=== PATIENT | female | born 2005 | race Caucasian/White ===

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

== ENCOUNTER 2024-02-11 12:48 | Outpatient (CLI) | payer OTHER, SELFPAY ==
--- NOTE | 2024-02-11 13:00 | CRLHL7_ITS ---
For Patients: As a result of the Century Cures Act, medical imaging exams and procedure reports are released immediately into your electronic medical record. You may view this report before your referring provider. If you have questions, please contact your health care provider. INDICATION: Headaches. TECHNIQUE: Multiplanar multisequence noncontrast MR images of the brain. COMPARISON: None. FINDINGS: The ventricles and sulci are within normal limits for patient age. No mass effect or midline shift. No parenchymal signal abnormalities. No intracranial hemorrhage or pathologic extra-axial fluid collection. No diffusion restriction to suggest acute infarction. The major arterial flow voids at the skull base are preserved. The globes are symmetric. The paranasal sinuses are well aerated. The mastoid air cells are clear. IMPRESSION: Unremarkable noncontrast MRI of the brain. Dictated by Umair Graves MD @ 02/11/2024 1:40:21 PM (Electronically Signed)
== END 2024-02-11 12:49 | disposition home or self-care (01) ==
LOC: MRI 12:49
PROVIDERS: PCP Physician Assistant Medical; Visit Provider Physician Assistant Medical
DX: G43.109 Migraine with aura, not intractable, without status migrainosus (principal)
CPT/HCPCS: 70551

== ENCOUNTER 2024-02-22 09:02 | Outpatient (CLI) | payer OTHER, SELFPAY | END 2024-02-22 09:03 | disposition home or self-care (01) | LOC: NFLDREF 02-26 07:57 | PROVIDERS: PCP Physician Assistant Medical; Referring Provider Physician Assistant Medical; Visit Provider Physician Assistant Medical | DX: G43.109 Migraine with aura, not intractable, without status migrainosus (principal); Z13.228 Encounter for screening for other metabolic disorders; Z13.0 Encounter for screening for diseases of the blood and blood-forming organs and certain disorders involving the immune mechanism; Z13.29 Encounter for screening for other suspected endocrine disorder | CPT/HCPCS: 80053; 82728; 84443 ==

== ENCOUNTER 2024-08-07 15:25 | Outpatient (CLI) | payer OTHER, SELFPAY | END 2024-08-07 15:26 | disposition home or self-care (01) | LOC: FRMREF 15:27 | PROVIDERS: PCP Physician Assistant Medical; Visit Provider Physician Assistant Medical | DX: N94.6 Dysmenorrhea, unspecified (principal) | CPT/HCPCS: 87624; 87625; 88141; 88142 ==

== ENCOUNTER 2025-04-29 15:28 | Emergency (ER) | payer OTHER, SELFPAY ==
--- OUTSIDE RECORDS SUMMARY | 2025-04-29 15:29 | XMS_ITS | Encounter Summary ---
Author Organization [facility] Address [address] [place] [address] Care Team Providers Care Manager Environmental Services Name Role Phone Xiao Jara MD Primary Care P [facility] Encounter Details Date Type Department Care Team (Late st Contact Info) Description 07/14/2019 Correspondence External to External, [place] [address] CASE STATUS [facility] Social History Tobacco Use Types Packs/Day Years Used Date Smoking Tobacco: Never Smokeless Tobacco: Never Alcohol Use Standard Drinks/Week Comments Never 0 (1 standard drink = 0.6 oz pur e alcohol) AUDIT-C Answer Date Recorded Frequency of Alcohol Consumption Never 12/31/2018 Average Number of Drinks Not on file 019 Frequency of Binge Drinking Not on file 12/06 Comments Unknown Sex and Gender Information Value Date Recorded Sex Assigned at Not on file Legal Sex Female 5:30 AM CDT Gender Identity Not on file Sexual Orientation Not on file documented as of this encounter Plan of Treatment Not on file documented as of this encounter Visit Diagnoses Not on filedocumented in this encounter Care Teams Manager Environmental Services Relationship Specialty Start Date End Date Xiao Jara MD [address] [place] [address] PCP - General 12/26/08 documented as of this encounter
--- OUTSIDE RECORDS SUMMARY | 2025-04-29 15:29 | XMS_ITS | Clinical Summary ---
Author Organization [facility] Address [address] [place] [address] Care Team Providers Care Music Director Name Role Phone Kaylene Dillard MD Primary Care Provider [phone] Allergies Active Allergy Reactions Criticality Noted Date Comments Dust Mites 10/17/2013 Mold 10/17/2013 Trees 10/17/2013 Medications albuterol (ALBUTEROL) 108 (90 BASE) MCG/ACT inhaler Inhale 2 puffs into the lungs every 6 hours Active DULoxetine (CYMBALTA) 30 MG EC capsule TAKE ONE CAPSULE BY MOUTH EVERY MORNING AND ONE CAPSULE EVERY EVENING 1 05/19/2018 Active Active Problems Problem Noted Date Diagnosed Date Overweight 01/09/2014 Overview (06/07/2015): Problem list name updated by automated process. 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 Gender Identity Not on file Sexual Orientation Not on file Last Filed Vital Signs Vital Sign [place] Time Taken Comments Blood Pressure 96/65 06/29/2018 10:45 AM CDT Pulse 80 06/29/2018 10:45 AM CDT Temperature - - Respiratory Rate - - Oxygen Saturation 98% 05/25/2018 7:07 AM CDT Inhaled Oxygen Concentration - - Weight 85.6 kg (188 lb 11.2 oz) 05/25/2018 7:07 AM CDT Height 170.8 cm (5' 7.24) 05/25/2018 7:07 AM CD T Body Mass Index 29.34 05/25/2018 7:07 AM CDT Plan of Treatment Not on file [place] Care Teams Music Director Relationship Specialty Start Date End Date Kaylene Dillard MD [address] [place] [address] PCP - General Family Practice 10/04/13
--- OUTSIDE RECORDS SUMMARY | 2025-04-29 15:29 | XMS_ITS | Clinical Summary ---
Author Organization [facility] Address [address] [place] [address] Care Team Providers Care J2Ee Programmer Name Role Phone Xiao Jara MD Primary Care P [facility] Source Comments You are receiving this document as you are listed as the primary care provider,follow-up provider, or the patient has been referred to you for consultation.This is in compliance with the Medicare and[facility] EHR Incentive [facility],which states Providers who transition their patient to another setting of careor provider of care or refers their patient to another provider of care shouldprovide summary care record for each transition of care or referral. [facility] All[facility] Active Allergy Reactions Criticality Noted Date Comments Molds & Smuts Rash 07/27/2019 Tested for it in allergy clinic Medications multivitamin (THERAGRAN) tablet Take 1 Tablet by mouth daily. Active acetaminophen (TYLENOL) 325 MG tabletIndicati ons:Pain Take 2 Tablets by mouth three times a day. Maximum acetaminophen dose is 4000 mg in 24 hours Indications: Pain 100 Tablet 2 9 Active Additional Information Patient not taking.Reported on 05/27/2020 diazePAM (VALIUM) 2 MG tabletIndicati ons:Muscle Spasm Take 1 Tablet by mouth every 6 hours as needed for Anxiety or Muscle Spasms. Indications: Muscle Spasm 10 Tablet 9 Active Additional Information Patient not taking.Reported on 05/27/2020 HYDROcodone-ac etaminophen (NORCO) 5-325 MG tablet Take 1-2 Tablets by mouth every 4 hours as needed for Pain. 10 Tablet 0 Active Additional Information Patient not taking.Reported on 05/27/2020 sulindac (CLINORIL) 150 MG tablet Take 1 Tablet by mouth two times a day. 30 Tablet 2 0 Active lidocaine (LIDODERM) 5 % patch Apply 1 Patch to skin daily. Leave on for up to 12 hours in a 24 hour period, then remove. Cut into shape of incision. 20 Patch 1 1 Active diclofenac (VOLTAREN) 1 % gelIndications :foot pain Apply small amount (0.5 gm) to painful areas of feet twice daily. Indications: foot pain 100 g 3 1 Active methylPREDNISo lone (MEDROL 21 TABLET DOSEPACK) 4 MG tabletIndicati ons:Inflammati on Follow package directions Indications: Inflammation 21 Tablet 1 Active gabapentin (NEURONTIN) 100 MG capsule Take 1 Capsule by mouth three times a day for 14 days. 42 Capsule 3 1 Active Meloxicam (MOBIC) 15 MG tablet TAKE ONE TABLET BY MOUTH EVERY DAY . 30 Tablet 1 Active Active Problems Problem Noted Date Diagnosed Date Painful orthopaedic hardware 03/19/2020 Overview (03/19/2020): Added automatically from request for surgery [id number] Pes planovalgus 05/24/2019 Overview (05/24/2019): Added automatically from request for surgery [id number] Social History Tobacco Use Types Packs/Day Years [...] Sign Reading Time Taken Comments Blood Pressure 99/72 04/01/2020 2:10 PM CDT Pulse 92 04/01/2020 2:10 PM CDT Temperature 36.2 C (97.2 F) 04/01/2020 1:42 PM CDT Respiratory Rate 18 04/01/2020 2:10 PM CDT Oxygen Saturation 98% 04/01/2020 2:10 PM CDT Inhaled Oxygen Concentration - - Weight 99.8 kg (220 lb) 07/04/2021 10:30 AM CDT Height 172.7 cm (5' 8) 07/04/2021 10:30 AM CDT Body Mass Index 33.45 07/04/2021 10:30 AM CDT Plan of Treatment Health Maintenance Due Date Last Done Comments Cervical Cancer Screening Due 2003 Chlamydia 2003 Hep C Screening (Preventive Services) 2003 MenB Immunization Discussion 2003 Tuberculosis Screening 2003 HepA Vaccine (2 of 2 - 2-dose series) 10/23/2015 04/22/2015 HIV Screening (Preventive Services) 2019 HPV Vaccine (2 - 3-dose series) 10/11/2020 09/13/2020 Adult Preventive Visit 2021 HepB Vaccine (1) 2022 COVID-19 Vaccine ( season) 2024 07/01/2021, 12/19/2020, 11/27/2020 DTaP/Tdap/Td Vaccine (5 - Tdap) 04/22/2025 04/22/2015, 11/30/2007, 2003, Additional history exists Influenza Vaccine (#1) 2025 3, 05/16/2012, 06/18/2010, Additional history exists Zoster/Shingles Vaccine (1 of 2) 2053 Hib Vaccine Aged Out 05/07/2004, 2003 No lo nger eligible based on patient's age to complete this topic Pneumococcal Vaccine Aged Out 05/07/2004, 06/22/20 03 No longer eligible based on patient's age to complete this topic IPV (Polio) Vaccine Completed 11/30/2007, 2003, 2003 MCV4 Vaccine Aged Out 04/22/2015 No longer eligi ble based on patient's age to complete this topic Medical Devices Implanted Type Area Historical Manuscripts Curator Device Identifier Shelf Expiration Date Model / Serial / Lot Scr Quita [id number] P-Thrd [id number] - [id number] Implanted:Qty : 1 on 07/27/2019 by Kati Foster MD at [facility] DEVICE Right: CALCANEOUS [employer] - Trauma [id number] / / Insurance SHARED SERVICES SHARED SERVICES C SHARED SERVICES [facility] SHARED SERVICES Advance Directives * Full Code (Latest Code Status on File) Date Activated Date Inactivated Comments 04/01/2020 11:18 AM 04/01/2020 4:18 PM * Full Code Date Activated Date Inactivated Comments 07/27/2019 5:45 AM 07/27/2019 10:42 PM Care Teams J2Ee Programmer Relationship Specialty Start Date End Date Xiao Jara MD [address] [place] [address] PCP - General 12/26/08
[2025-04-29 15:30] VITALS: BP 132/75; PULSE 95; RESP 18; TEMP 36.3; O2SAT 98; BMI 39.2
--- OUTSIDE RECORDS SUMMARY | 2025-04-29 15:30 | XMS_ITS | Encounter Summary ---
Author Organization [facility] Address [address] [place] [address] Care Team Providers Care Historiographer Name Role Phone Xiao Jara MD Primary Care P [facility] Encounter Details Date Type Department Care Team (Late st Contact Info) Description 07/25/2019 Consent for Procedure/Treatme nt [facility] INFORMED CONSENT RECORD Social History Tobacco Use Types Packs/Day Years [...] on file documented as of this encounter Functional Status documented as of this encounter Plan of Treatment Not on file documented as of this encounter Visit Diagnoses Not on filedocumented in this encounter Care Teams Historiographer Relationship Specialty Start Date End Date Xiao Jara MD [address] [place] [address] PCP - General 12/26/08 documented as of this encounter
--- OUTSIDE RECORDS SUMMARY | 2025-04-29 15:30 | XMS_ITS | Encounter Summary ---
Author Organization [facility] Address [address] [place] [address] Care Team Providers Care Finishing Operator Name Role Phone Xiao Jara MD Primary Care P [facility] Encounter Details Date Type Department Care Team (Late st Contact Info) Description 08/26/2018 Scanned History External to Transferred Record, Provider [facility] Social History Tobacco Use Types Packs/Day Years Used Date Smoking Tobacco: Never Assessed Comments Unknown Sex and Gender Information Value Date Recorded Sex Assigned at Not on file Legal Sex Female 5:30 AM CDT Gender Identity Not on file Sexual Orientation Not on file documented as of this encounter Plan of Treatment Not on file documented as of this encounter Visit Diagnoses Not on filedocumented in this encounter Care Teams Finishing Operator Relationship Specialty Start Date End Date Xiao Jara MD [address] [place] [address] PCP - General 12/26/08 documented as of this encounter
--- NOTE | 2025-04-29 15:35 | CRLHL7_ITS ---
For Patients: As a result of the Century Cures Act, medical imaging exams and procedure reports are released immediately into your electronic medical record. You may view this report before your referring provider. If you have questions, please contact your health care provider. INDICATION: Twisted ankle, injury today, fall TECHNIQUE: Ankle radiograph 3 views left COMPARISON: None FINDINGS: Bone: No acute fractures or aggressive bone lesions are identified. Joint: The ankle mortise joint and the visualized hindfoot joints are unremarkable in appearance. No significant ankle effusion is seen. Soft tissue: Mild lateral swelling noted. The Kager fat pad and the Achilles` tendon are normal in appearance. No radiopaque foreign bodies are seen. IMPRESSION: No acute osseous injuries or abnormalities are noted. Dictated by: Shant Mejía MD @ 04/29/2025 16:04:57 (Electronically Signed)
--- NOTE | 2025-04-29 15:50 | ED.GENADULT ---
HPI - General Adult General Chief complaint: Extremity Pain/Injury, Lower Stated complaint: fell L ankle injury Time Seen by Provider: 04/29/25 15:34 Source: patient Mode of arrival: wheelchair Limitations: no limitations History of Present Illness HPI narrative: 20-year-old female coming in today complaining of left ankle pain. She states that she stood up and rolled her ankle before falling on top of it. Denies other injury. States that she could not walk after this happened. This occurred approximately 4 hours ago. Related Data Home Medications ?Medication ?Instructions ?Recorded ?Confirmed fluoxetine 20 mg capsule 20 mg PO QDAY 08/19/22 04/29/25 roflumilast 0.3 % topical foam 1 applic topical QDAY 08/07/24 04/29/25 (Zoryve) clonidine HCl 0.1 mg tablet 0.1 mg PO QID PRN anxiety 12/13/24 04/29/25 fluoxetine 60 mg tablet 60 mg PO DAILY 12/13/24 04/29/25 Previous Rx's ?Medication ?Instructions ?Recorded ketoconazole 2 % shampoo 1 applic topical Q2W #120 mL 01/13/23 Allergies Allergy/AdvReac Type Severity Reaction Status Date / Time Molds & Smuts Allergy Mild Unknown Uncoded 03/13/25 09:38 Review of Systems Status of ROS: Reports: 6 or more systems reviewed and unremarkable except as noted in History and below [facility] Medical History Acute left otitis media ?H66.92 - Otitis media, unspecified, left ear (ICD-10) Asthma with acute exacerbation ?J45.901 - Unspecified asthma with (acute) exacerbation (ICD-10) Ingrown nail of great toe of right foot ?L60.0 - Ingrowing nail (ICD-10) Atopic dermatitis of scalp ?L20.9 - Atopic dermatitis, unspecified (ICD-10) Surgical History History of wisdom tooth extraction ?K08.409 - Partial loss of teeth, unspecified cause, unspecified class (ICD-10) History of foot surgery ?Z98.890 - Other specified postprocedural states (ICD-10) History of placement of ear tubes (11/30/07) ?Z96.22 - Myringotomy tube(s) status (ICD-10) History of placement of ear tubes ?Z96.22 - Myringotomy tube(s) status (ICD-10) Social History What is your current living situation?: I presently have a place to live Problems where you live: no known problems In the past 12 months, utilities in danger of being shut off: no In past 12 months, lack of transportation kept you from medical appts, meetings, work, or getting things needed for daily living: no In the past 12 mos, have been you worried that your food would run out before you had money to buy more?: never true In the past 12 mos, the food you bought just didn't last and you didn't have money to buy more?: never true Smoking Status: Never smoker How often does anyone, including family, friends and others, physically hurt you: never How often does anyone, including family, friends and others, insult or talk down to you: never How often does anyone, including family, friends and others, threaten you with harm: never How often does anyone, including family, friends and others, scream or curse at you: never Exam Narrative: Exam Narrative: Left ankle is swollen over the lateral aspect. Patient has pain over the lateral malleolus and the area just distal to it. She has good range of motion flexion extension, eversion and inversion but does cause discomfort over the lateral ankle. No pain over the foot. Normal DP and PT pulses. Skin is intact. Normal capillary refill. No bruising is noted. Const: Vital Signs, click to edit/add: Vital Signs - 24 hr 04/29/25 15:30 Temperature 97.4 F L Pulse Rate [Right Pulse Oximeter] 95 Respiratory Rate 18 Blood Pressure [Ri ght Upper Arm] 132/75 Pulse Oximetry 98 Oxygen Delivery Me thod Room Air Course Course ED Course: X-ray of the ankle, read by me, does not show any acute fractures. Vital Signs Vital signs: Initial Vital Signs Temperature 97.4 F L 04/29/25 15:30 Temperature Source Temporal Artery Scan 04/29/25 15:30 Pulse Rate 95 04/29/25 15:30 Pulse Rhythm Regular 04/29/25 15:30 Pulse Strength 3+ Normal 04/29/25 15:30 Respiratory Rate 18 04/29/25 15:30 Blood Pressure 132/75 04/29/25 15:30 Blood Pressure Mean 94 04/29/25 15:30 Blood Pressure Position Sitting 04/29/25 15:30 Pulse Oximetry 98 04/29/25 15:30 Oxygen Delivery Method Room Air 04/29/25 15:30 Vital Signs Temperature 97.4 F L 04/29/25 15:30 Pulse Rate 95 04/29/25 15:30 Respiratory Rate 18 04/29/25 15:30 Blood Pressure 132/75 04/29/25 15:30 Pulse Oximetry 98 04/29/25 15:30 Oxygen Delivery Method Room Air 04/29/25 15:30 Temperature 97.4 F L 04/29/25 15:30 Pulse Rate 95 04/29/25 15:30 Respiratory Rate 18 04/29/25 15:30 Blood Pressure 132/75 04/29/25 15:30 Pulse Oximetry 98 04/29/25 15:30 Oxygen Delivery Method Room Air 04/29/25 15:30 Medical Decision Making MDM Narrative Medical decision making narrative: 20-year-old female with a sprained ankle. Discussed symptomatic treatment. Imaging Data X-ray ankle: Attestation: I have reviewed the pertinent imaging results. Radiologist's impression: TECHNIQUE: Ankle radiograph 3 views left COMPARISON: None FINDINGS: Bone: No acute fractures or aggressive bone lesions are identified. Joint: The ankle mortise joint and the visualized hindfoot joints are unremarkable in appearance. No significant ankle effusion is seen. Soft tissue: Mild lateral swelling noted. The Kager fat pad and the Achilles` tendon are normal in appearance. No radiopaque foreign bodies are seen. IMPRESSION: No acute osseous injuries or abnormalities are noted. Discharge Plan Discharge Clinical Impression: Ankle sprain and strain Patient Disposition: Home, Self-Care Condition: Stable Instructions: Ankle Sprain (DC) Prescriptions: No Action fluoxetine 20 mg capsule 20 mg PO QDAY Patient Comments: TAKE ONE CAPSULE BY MOUTH EVERY DAY Zoryve 0.3 % foam 1 applic topical QDAY fluoxetine 60 mg tablet 60 mg PO DAILY Rx Instructions: taking both 20 mg and 60 mg tablets clonidine HCl 0.1 mg tablet 0.1 mg PO QID PRN (Reason: anxiety) ketoconazole 2 % shampoo 1 applic topical Q2W Qty: 120 2RF Follow Up/Referrals: Marc Triana PA-C [Primary Care Provider, Family Practice] Stand Alone Forms: [employer] Info Instructions
== END 2025-04-29 16:34 | disposition home or self-care (01) ==
PROVIDERS: Emergency Provider Family Medicine; PCP Physician Assistant Medical
DX: S93.402A Sprain of unspecified ligament of left ankle, initial encounter (principal); X50.1XXA Overexertion from prolonged static or awkward postures, initial encounter
CPT/HCPCS: 73610; 99283; 99284